=== PATIENT | female | born 1970 | race Caucasian/White ===

== ENCOUNTER 2022-07-22 15:48 | Emergency (ER) | payer MEDICAID ==
[~2022-07-22] VITALS: Ht 170.2 cm; Wt 71.7 kg
[2022-07-22 16:39] VITALS: BP 133/87
[2022-07-22] MEDS ORDERED: KETOROLAC 30 MG/ML VIAL IM ONE (18:00)
[2022-07-22] MEDS ORDERED: ONDANSETRON 4 MG ODT PO ONE (18:00)
[2022-07-22] MEDS ORDERED: cefTRIAXone 1,000 MG in LIDOCAINE MPF 1% 2.1 ML IM ONE (18:00)
[2022-07-22] MEDS ORDERED: LIDOCAINE MPF 1% 5 ML ONE (18:38)
[2022-07-22] MEDS ORDERED: cefTRIAXone 1,000 MG VIAL ONE (18:38)
--- NOTE | 2022-07-22 19:14 | NUR ---
HANNAH Jansen explained results and treatment plans.
[2022-07-22] MEDS ORDERED: CEPH-588 PO (19:36)
[2022-07-22] MEDS ORDERED: ONDA-188 PO (19:36)
[2022-07-22] MEDS ORDERED: PHEN-1877 PO (19:36)
[2022-07-22] MEDS ORDERED: IBUP-2213 PO (19:36)
[2022-07-22 19:44] VITALS: BP 118/78
--- NOTE | 2022-07-22 19:44 | NUR ---
Patient discharged with v/s stable. Written and verbal after care instructions given and explained. Patient alert, oriented and verbalized understanding of instructions. Ambulatory with steady gait. All questions addressed prior to discharge. ID band removed. Patient advised to follow up with PMD. Rx of Keflex, Ibuprofen, Zofran and Pyridium, given. Patient educated on indication of medication including possible reaction and side effects. Opportunity to ask questions provided and answered.
--- NOTE | 2022-07-25 19:06 | NUR ---
LATE ENTRY. RECEIVED POSITIVE URINE CULTURE RESULT. FORM GIVEN TO DR MORLEY, TREATMENT APPROPRIATE. FORM PLACED IN BINDER
== END 2022-07-22 19:44 | disposition home or self-care (01) ==
LOC: MED 15:48
DX: N39.0 Urinary tract infection, site not specified (principal); M54.50 Low back pain, unspecified; R35.0 Frequency of micturition; Z79.899 Other long term (current) drug therapy
CPT/HCPCS: 81002; 81025; 87086; 96372; 99284; J0696; J1885; J2001; Q0162

== ENCOUNTER 2024-07-20 10:40 | Emergency (ER) | payer MEDICAID ==
[~2024-07-20] VITALS: Ht 167.6 cm; Wt 63.0 kg
[~2024-07-20 10:40] MED LIST: CEPH-588 PO; IBUP-2213 PO; ONDA-188 PO; PHEN-1877 PO
[2024-07-20 11:06] VITALS: BP 126/78; PULSE 74; RESP 20; TEMP 98.1; O2SAT 100
[2024-07-20 11:50] LABS: APPEARANCE,URINE CLEAR (CLEAR); COLOR,URINE YELLOW (YELLOW)
[2024-07-20 11:51] LABS: BILIRUBIN,URINE NEGATIVE (NEGATIVE); BLOOD, URINE 1+ (NEGATIVE); LEUKOCYTE ESTERASE ,URINE NEGATIVE (NEGATIVE); NITRITE, URINE NEGATIVE (NEGATIVE); PH,URINE 7.5 (5.0-9.0); PROTEIN,URINE NEGATIVE (NEGATIVE); UGLUCOSE NEGATIVE (NEGATIVE); UROBILINOGEN,URINE 0.2 EU/dL (0.2 - 1)
[2024-07-20 11:57] LABS: BASOPHILS % (AUTO) 0.4 % (0.0-2.0); EOSINOPHILS # (AUTO) 0.1 K/uL (0-0.4); EOSINOPHILS % (AUTO) 2.2 % (0.0-4.0); HEMATOCRIT 42.8 % (36-48); HEMOGLOBIN 14.2 g/dL (12.0-16.0); LYMPHOCYTES # (AUTO) 1.5 K/uL (2.5-16.5); LYMPHOCYTES % (AUTO) 26.6 % (20.5-51.1); MEAN CORPUSCULAR HEMOGLOBIN 30 pg (27-31); MEAN CORPUSCULAR HGB CONC 33 g/dL (33-37); MONOCYTES # (AUTO) 0.6 K/uL (0.8-1.0); MONOCYTES % (AUTO) 10.4 % (1.7-9.3); NEUTROPHILS # (AUTO) 3.4 K/uL (1.8-7.7); NEUTROPHILS % (AUTO) 60.4 % (42.2-75.2); PLATELET COUNT (AUTO) 190 K/uL (140-450); RED BLOOD CELL COUNT(AUTO) 4.75 MIL/uL (4.20-5.40); RED CELL DISTRIBUTION WIDTH 13.2 % (11.6-13.7); WHITE BLOOD COUNT (AUTO) 5.7 K/uL (4.8-10.8)
[2024-07-20 12:05] LABS: ANION GAP 9.9 (8-16); CALCIUM 9.7 mg/dL (8.5-10.1); CARBON DIOXIDE 31.8 mmol/L (21-32); CREATININE 0.8 mg/dL (0.6-1.3); POTASSIUM 3.7 mmol/L (3.5-5.1)
[2024-07-20 12:12] LABS: ALBUMIN 4.2 g/dL (3.4-5.0); BILIRUBIN,DIRECT 0.1 mg/dL (0.0-0.3); TOTAL BILIRUBIN 0.5 mg/dL (0.0-1.0); TOTAL PROTEIN, SERUM 8.3 g/dL (6.4-8.2)
[2024-07-20 12:15] LABS: BACTERIA,URINE OCCASSIONAL /HPF (None Seen); RBC,URINE 0-5 /HPF (0-5); SQUAMOUS EPITHELIAL CELL,UR 0-3 (FEW) /LPF (0-3 (FEW)); WBC,URINE 0-5 /HPF (0-5)
[2024-07-20] MEDS: ACETAMINOPHEN EXTRA STRENGTH 500 MG TAB PO ONE (13:29)
[2024-07-20] MEDS: KETOROLAC 30 MG/ML VIAL IVP ONE (13:30)
[2024-07-20 13:35] VITALS: BP 154/84; PULSE 71; RESP 14; O2SAT 98
== END 2024-07-20 14:07 | disposition home or self-care (01) ==
LOC: MED 10:40
DX: R10.32 Left lower quadrant pain (principal); Z79.899 Other long term (current) drug therapy
CPT/HCPCS: 36415; 74176; 80048; 80076; 81001; 81025; 83690; 85025; 96374; 99285; J1885

== ENCOUNTER 2024-08-06 15:18 | Emergency (ER) | payer MEDICAID ==
[~2024-08-06] VITALS: Ht 167.6 cm; Wt 64.9 kg
[2024-08-06 15:41] VITALS: BP 146/81; PULSE 67; RESP 16; TEMP 98; O2SAT 97
[2024-08-06 18:00] VITALS: O2SAT 98
[2024-08-06 18:20] VITALS: TEMP 98.1
[2024-08-06 18:49] LABS: APPEARANCE,URINE CLEAR (CLEAR); BILIRUBIN,URINE NEGATIVE (NEGATIVE); BLOOD, URINE TRACE-I (NEGATIVE); COLOR,URINE YELLOW (YELLOW); LEUKOCYTE ESTERASE ,URINE NEGATIVE (NEGATIVE); NITRITE, URINE NEGATIVE (NEGATIVE); PH,URINE 6.5 (5.0-9.0); PROTEIN,URINE NEGATIVE (NEGATIVE); UGLUCOSE NEGATIVE (NEGATIVE); UROBILINOGEN,URINE 0.2 EU/dL (0.2 - 1)
[2024-08-06 18:55] LABS: BACTERIA,URINE FEW /HPF (None Seen); RBC,URINE 0-5 /HPF (0-5); SQUAMOUS EPITHELIAL CELL,UR 0-3 (FEW) /LPF (0-3 (FEW)); WBC,URINE NONE SEEN /HPF (0-5)
[2024-08-06] MEDS: KETOROLAC 60 MG/2 ML VIAL IM ONE (19:05)
[2024-08-06 19:57] VITALS: BP 131/79; PULSE 67; RESP 16; O2SAT 99
[2024-08-06] MEDS: MORPHINE SULFATE 4 MG/ML SYR IM ONE (20:54)
[2024-08-06] MEDS ORDERED: IBUP-2213 PO (20:54)
[2024-08-06] MEDS ORDERED: ACET-8905 PO (20:54)
== END 2024-08-06 21:05 | disposition home or self-care (01) ==
LOC: MED 15:18
DX: R10.32 Left lower quadrant pain (principal); Z90.49 Acquired absence of other specified parts of digestive tract; Z79.899 Other long term (current) drug therapy
CPT/HCPCS: 76830; 81001; 81025; 96372; 99285; J1885; J2270; Q0092